=== PATIENT | female | born 1970 | race Caucasian/White ===

== ENCOUNTER 2022-08-30 17:22 | Outpatient (REF) | payer OTHER, SELFPAY ==
[2022-08-30 19:50] LABS: ALT 26 U/L (14-59); AST 23 U/L (15-37); Albumin 4.6 g/dL (3.4-5.0); Alkaline Phosphatase 75 U/L (46-116); Anion Gap 8.5 mmol/L (3-11); BUN 9 mg/dL (7-18); Bilirubin, Total 0.4 mg/dL (0.2-1.0); CO2 29.5 mmol/L (21.0-32.0); CREATININE 0.8 mg/dL (0.55-1.02); Calcium 9.5 mg/dL (8.5-10.1); Calculated LDL 102 mg/dL (<100); Chloride 104 mmol/L (98-107); Cholesterol 221 mg/dL (<200); Estimated GFR 88.05 (mL/min/1.73m2); Glucose 82 mg/dL (74-106); HDL Cholesterol 111 mg/dL (40-60); Potassium 4.1 mmol/L (3.5-5.1); Sodium 142 mmol/L (136-145); TSH 9.33 uIU/mL (0.36-3.74); Total Protein 8.1 g/dL (6.4-8.2); Triglyceride 40 mg/dL (<150); Vitamin B12 485 pg/mL (193-986)
== END 2022-08-30 17:23 | disposition home or self-care (01) ==
LOC: NCHCN 17:22
PROVIDERS: PCP Pediatrics; Visit Provider Internal Medicine
DX: F32.0 Major depressive disorder, single episode, mild (principal); R48.2 Apraxia; E78.89 Other lipoprotein metabolism disorders; Z86.2 Personal history of diseases of the blood and blood-forming organs and certain disorders involving the immune mechanism
CPT/HCPCS: 80053; 80061; 82607; 84443

== ENCOUNTER 2022-09-01 18:15 | Outpatient (REF) | payer OTHER, SELFPAY ==
[2022-09-01 22:47] LABS: FREE T4 0.87 ng/dL (0.76-1.46); TSH 1.91 uIU/mL (0.36-3.74)
[2022-09-02 19:29] LABS: Thyroperoxidase Antibody <28 U/mL (<=60)
== END 2022-09-01 18:16 | disposition home or self-care (01) ==
LOC: NCHCN 18:15
PROVIDERS: PCP Pediatrics; Visit Provider Internal Medicine
DX: F32.0 Major depressive disorder, single episode, mild (principal)
CPT/HCPCS: 84439; 84443; 86376

== ENCOUNTER 2022-12-17 08:19 | Outpatient (CLI) | payer OTHER, SELFPAY | END 2022-12-17 08:20 | disposition home or self-care (01) | PROVIDERS: PCP Internal Medicine; Visit Provider Psychiatry & Neurology Neurology | DX: R27.0 Ataxia, unspecified (principal); R29.898 Other symptoms and signs involving the musculoskeletal system | CPT/HCPCS: 93270 ==

== ENCOUNTER 2023-01-27 14:32 | Outpatient (CLI) | payer OTHER, SELFPAY ==
--- NOTE | 2023-01-27 14:32 | W.CARDEVENT ---
Date of service: 01/27/23 Time of Service: 14:32 Cardiac Event Recorder Referring Provider:: Nellie Mariee Indications:: Other symptoms, ataxia Cardiac Event Note: This is a 30-day cardiac event monitor. Patient was monitored for a total of 29 days Rhythm throughout was sinus. Average heart rate was 64. Minimum was 53, maximum was 140 There were rare ventricular ectopic beats there was no atrial fibrillation, no high-grade AV block, no pauses greater than 3 seconds Patient's symptoms of skipped beats correlated to isolated PVCs but also to sinus rhythm
== END 2023-01-27 14:33 | disposition home or self-care (01) ==
LOC: CARDOPNVT 14:32
PROVIDERS: PCP Internal Medicine; Visit Provider Internal Medicine Cardiovascular Disease
DX: R27.0 Ataxia, unspecified (principal); R29.898 Other symptoms and signs involving the musculoskeletal system